=== PATIENT | male | born 1970 | race Caucasian/White ===

== ENCOUNTER 2016-07-05 09:10 | Emergency (ER) | payer MEDICAID ==
--- NOTE | 2016-07-05 09:18 | ED Physician Chart ---
Chief Complaint/HPI - Patient Information Date Seen:: 07/05/16 Time Seen:: 09:15 Chief Complaint:: L ankle pain History of Present Illness:: Brought in by ambulance because of L ankle pain for 2 days. Pt states that he twisted his L ankle about 2 days ago. Pt otherwise feels well. Pt has h/o mental illness and is homeless. He has not been taking his medications for his psychiatric conditions. Pt has flights of ideas. He becomes agitated and is uncooperative. Thus, H & P are limited. Vitals:: see Nurse Note. Historian:: Patient Family MD/PCP:: unknown. LMP:: N/A Review:: Nurse's Note Reviewed Review of Systems - Review of Systems General/Constitutional: Other (Pt does not cooperate for ROS.) Past Medical History - Past Medical History Past Medical History: HTN, Seizures, Other (Pt does not cooperate to provide info.) Family History: Other (Pt does not cooperate to provide info on FHx.) Social History: Homeless, Other (Pt does not cooperate to provide info on SHx.) Surgical History: other (Pt does not cooperate to provide info on Surgical Hx.) Psychiatricy History: Bipolar Medication: Reviewed Family Medical History - Family Member Mother History Unknown: Yes Physical Exam - Physical Examination General/Constitutional: Awake, Well-developed, well-nourished, Alert, No distress, Ambulatory Other Gen/Cons comments:: Breathes comfortably, speaks clearly with flight of ideas. Pt at times becomes very agitated and is uncooperative. Pt is verbally abusive and bellingerent. Head: Atraumatic Eyes: Lids, conjuctiva normal, PERRL, EOMI Skin: No ecchymosis, Well hydrated, No lymphadenopathy ENMT: External ears, nose nl, Nasal exam nl, Oropharynx nl Neck: Nontender, Full ROM w/o pain, No JVD, No nuchal rigidity, No mass, No stridor Respiratory: Nl effort/Exclusion, Clear to Auscultation, No Wheeze/Rhonchi/Rales Cardio Vascular: RRR, No murmur, gallop, rubs GI: No tenderness/rebounding/guarding, No organomegaly, No hernia, Normal BS's, Nondistended, No mass/bruits, No McBurney tenderness Other GI comments:: Abdomen is soft. Other Extremities comments:: L ankle: Tenderness to palpation at medial aspect with mild edema. ROM is decreased due to pain. No gross deformity, erythema, crepitus, or open wound. No detectable motor/sensory/vascular deficit. Good distal pulse and capillary refill. Neuro/Psych: Alert/oriented (oriented x 3.), No focal deficits Other Neuro/Psych comments:: Spontaneous movements noticed in all 4 extremities. Pt does not cooperate for full neurological exam. Labs/Radiology/EKG Results - Lab Results Results: Laboratory Tests 07/05/16 07/05/16 07/05/16 09:41 09:41 09:41 WBC 8.1 RBC 3.68 L Hgb 12.7 L Hct 34.9 L MCV 94.8 MCH 34.6 H MCHC Differential 36.5 H RDW 12.7 Plt Count 232 MPV 6.6 Neutrophils % 76.6 Lymphocytes % 13.8 L Monocytes % 6.4 Eosinophils % 0.6 Basophils % 2.6 H Sodium 130 L Potassium 4.0 Chloride 104 Carbon Dioxide 24.2 Anion Gap 5.8 L BUN 12 Creatinine 0.8 Est GFR ( Amer) > 60.0 Est GFR (Non-Af Amer) > 60.0 BUN/Creatinine Ratio 15.0 Glucose 126 H Calcium 8.6 Total Bilirubin 0.3 AST 22 ALT 11 Alkaline Phosphatase 64 Total Protein 6.0 Albumin 3.3 L Globulin 2.7 Albumin/Globulin Ratio 1.2 TSH 0.78 Urine Source Urine Color Urine Clarity Urine pH Ur Specific [place] Urine Protein Urine Glucose (UA) Urine Ketones Urine Blood Urine Nitrate Urine Bilirubin Urine Urobilinogen Ur Leukocyte Esterase Urine Opiates Screen Ur Barbiturates Screen Ur Phencyclidine Scrn Amphetamines Screen U Methamphetamines Scrn U Benzodiazepines Scrn U Cocaine Metab Screen U Cannabinoids Screen Ethyl Alcohol < 10 07/05/16 07/05/16 09:55 09:55 WBC RBC Hgb Hct MCV MCH MCHC Differential RDW Plt Count MPV Neutrophils % Lymphocytes % Monocytes % Eosinophils % Basophils % Sodium Potassium Chloride Carbon Dioxide Anion Gap BUN Creatinine Est GFR ( Amer) Est GFR (Non-Af Amer) BUN/Creatinine Ratio Glucose Calcium Total Bilirubin AST ALT Alkaline Phosphatase Total Protein Albumin Globulin Albumin/Globulin Ratio TSH Urine Source CLEAN C Urine Color YELLOW Urine Clarity CLEAR Urine pH 6.0 Ur Specific [place] 1.020 Urine Protein NEGATIVE Urine Glucose (UA) NEGATIVE Urine Ketones NEGATIVE Urine Blood NEGATIVE Urine Nitrate NEGATIVE Urine Bilirubin NEGATIVE Urine Urobilinogen 0.2 Ur Leukocyte Esterase NEGATIVE Urine Opiates Screen NEGATIVE Ur Barbiturates Screen NEGATIVE Ur Phencyclidine Scrn NEGATIVE Amphetamines Screen POSITIVE H U Methamphetamines Scrn POSITIVE H U Benzodiazepines Scrn POSITIVE H U Cocaine Metab Screen NEGATIVE U Cannabinoids Screen NEGATIVE Ethyl Alcohol RPR is pending. - Radiology Results Results: L ankle X-ray (3v.): Based on my interpretation, mild soft tissue swelling. No acute fx or subluxation. Official report is pending. ED Septic Shock - . Is Septic Shock (SBP<90, OR Lactate>4 mmol\L) present?: No Reassessment (Disposition) - Reassessment Reassessment:: 1135 Just informed by nursing staff that pt left the ER department and now he just returned, claiming that he is suicidal. Pt is ambulatory without distress. He is verbally abusive and bellingerent. 1144 Dr. Langston, psychiatrist is at bedside evaluating pt. 1600 Pt has been repeatedly evaluated. Pt has been put on [address] Juliane Berry. Pt remains stable and comfortable. No new findings. LLE was reexamined earlier after splint had been placed. It was placed properly without neurovascular deficit. 0625 Pt slept throug the night comfortably. Case was signed off to Dr. Kline at about 0625 for continued care. Reassessment Condition:: Improved - Diagnosis Diagnosis:: h/o bipolar disorder with polysubstance abuse. L ankle sprain, stable and improved.
[2016-07-05 09:47] LABS: % BASOPHILS 2.6 % (0.0-2.0); % EOSINOPHILS 0.6 % (0.0-5.0); % LYMPHOCYTES 13.8 % (20.0-50.0); % MONOCYTES 6.4 % (2.0-10.0); % NEUTROPHILS 76.6 % (40.0-80.0); HEMATOCRIT 34.9 % (39.0-49.0); HEMOGLOBIN 12.7 gm/dL (13.2-17.3); MEAN CELL VOLUME 94.8 fl (80-99); MEAN CORPUSCULAR HEMOGLOBIN 34.6 pg (26.0-30.0); MEAN CORPUSCULAR HGB CONC 36.5 pg (28.0-36.0); MEAN PLATELET VOLUME 6.6 fl; NEUTROPHILE ABSOLUTE 6.3 Th/cmm (1.8-8.0); PLATELET COUNT 232 Th/cmm (150-400); RED BLOOD COUNT 3.68 Mil/cmm (4.30-5.70); RED CELL DISTRIBUTION WIDTH 12.7 % (11.5-20.0); WHITE BLOOD COUNT 8.1 Th/cmm (4.8-10.8)
[2016-07-05 10:05] LABS: CARBON DIOXIDE 24.2 mEq/L (21.0-31.0); CHLORIDE 104 mEq/L (98-107); SODIUM SERUM 130 mEq/L (136-145)
[2016-07-05 10:06] LABS: ALB/GLOB RATIO 1.2 (1.0-1.8); ALKALINE PHOSPHATASE 64 U/L (34-104); ANION GAP 5.8 (7.0-16.0); BILIRUBIN,TOTAL 0.3 mg/dL (0.3-1.0); BUN - UREA NITROGEN 12 mg/dL (7-25); CALCIUM SERUM 8.6 mg/dL (8.6-10.3); CREATININE - SERUM 0.8 mg/dL (0.7-1.3); GLUCOSE 126 mg/dL (70-105); SGOT 22 U/L (13-39); SGPT/ALT 11 U/L (7-52)
[2016-07-05 10:08] LABS: URINE BILIRUBIN NEGATIVE (NEGATIVE); URINE BLOOD NEGATIVE (NEGATIVE); URINE COLOR YELLOW; URINE GLUCOSE (UA) NEGATIVE (NEGATIVE); URINE KETONE NEGATIVE (NEGATIVE); URINE PROTEIN NEGATIVE (NEGATIVE); URINE UROBILINOGEN 0.2 E.U./dL (0.2 - 1.0)
[2016-07-05 10:40] LABS: AMPHETAMINE URINE POSITIVE (NEGATIVE); BARBITURATES URINE NEGATIVE (NEGATIVE)
--- NOTE | 2016-07-06 03:49 | Consultation ---
CHIEF COMPLAINT: The patient was admitted, was seen in the Emergency Room on the 07/05/2016. IDENTIFYING INFORMATION: The patient is a 46-year-old male. REASON FOR CONSULTATION: ____, who came here. Apparently, he was seeking addictive medications, for pain and Driver, Ativan. He got agitated. He tried to elope. The police brought him back, became suicidal. When I talked to the patient who is very much hyperverbal, unable to follow direction, unable to give me information; however, he did tell me that he has long history of pain, substance abuse that he tried to harm himself before, but he was very hard to follow ____, so he was consider poor historian. JOB# [id number]
--- NOTE | 2016-07-06 04:04 | Consultation ---
The patient was seen in the Emergency Room on 07/05/2016. IDENTIFYING INFORMATION: The patient is a 46-year-old male. REASON FOR CONSULTATION: I was asked to see this patient who was suicidal. Apparently, the patient came and asking for pain medications when he did not get it, he eloped. The police brought him back. He started becoming suicidal. When I talked to him, he was all over the place, very hyperverbal, very restless, unable to follow direction or give information, but he did admit that he has a history of prior suicide attempt, has long history of psychiatric problems, has been hospitalized, he said that he has been here many times. He was not answering me regarding hallucinations, was not very easy to follow. PAST PSYCHIATRIC HISTORY: Depression, suicide attempt. He was manic. MEDICAL HISTORY: Deferred to the medical doctor. FAMILY AND SOCIAL HISTORY: I was unable to obtain. I tried to get his age and it took me for ____ to have him say it and then he went to ____. MENTAL STATUS EXAMINATION: The patient is appropriately dressed, however, kept taking off his clothes to show me his wounds. He was unable to tell me the date, where he is. He was complaining that he is in pain and then he starts becoming suicidal. He was unable to explain a plan, unable to follow direction, hyperverbal and manic, very tangential in his speech, unable to follow direction, unable to assess memory and intelligence. His insight and judgment is impaired. IMPRESSION: AXIS I: Bipolar disorder manic, mixed, polysubstance dependence. PLAN: I will put the patient on the hold, needs to be transferred to a Psych Unit for further treatment and evaluation. Thank you very much for allowing me to participate in the care of this most interesting gentleman. JOB# [id number]
[2016-07-06] MEDS ORDERED: buPROPion XL 150 mg T 24 H PO ONE (13:00)
--- NOTE | 2016-07-06 14:48 | Diagnostic Imaging Report ---
Left ankle (3 views) HISTORY: Pain There is generalized soft tissue swelling. No acute bony abnormalities are seen. No fractures. Joint spaces appear normal. IMPRESSION: 1. Soft tissue swelling 2. No definite acute bony abnormalities. In the presence of recent trauma and persistent symptoms, a repeat radiograph in 5-7 days may be helpful for detection of a subtle or occult fracture.
--- NOTE | 2016-07-06 23:53 | Admit Criteria Form ---
Admit Criteria Forms - Admit Criteria Diagnosis: PSYCHIATRIC DISORDERS Clinical Indications for Inpatient Care (Place 'X' for any and all applicable criteria): Ongoing inpatient care may be needed for ANY ONE of the following(1)(2)(3)(4)(6) (7)(8): [ ]I. Danger to self or others not manageable at lower level of care. [ ]II. Grave disability (eg, inability to perform self care necessary at lower level of care) [X]III. Agitation or inappropriate behavior interfering with care for primary condition (eg, attempting to discontinue lines or drains prematurely, unable to cooperate with respiratory care) [ ]IV. Severe disability or disorder indicated by ALL of the following: [ ]a) Severe behavioral health disorder-related symptoms or condition indicated by ANY ONE of the following: [ ]i) Severe problem with cognition, memory, judgment, or impulse control [ ]ii) Severe clinical manifestations (eg, hallucinations, delusions, other acute psychotic symptoms, marycarmen, extreme agitation or anxiety) [ ]b) Patient management at lower level of care is not feasible until acute intervention or modification is initiated. Extended stay beyond goal length of stay for the primary condition may be indicated when ANY ONE of the following is present: (1)(2)(3)(4): [ ]a) Patient is a danger to self or others and not manageable at lower level of care. [ ]b) Behavior crisis management, including physical or chemical restraints, is required and is not available at a lower level of care. [ ]c) Behavioral symptoms (e.g., agitation, somnolence, inappropriate behavior) are present, and are not manageable at a lower level of care. [ ]d) Patient cannot understand follow-up treatment and crisis plan. [ ]e) Provider and supports are not sufficiently available at lower level of care. [ ]f) Patient cannot participate (e.g., verify absence of plan for harm) and is in needed of monitoring. The original [facility] [employer] content created by [facility] [employer] has been revised. The portions of the content which have been revised are identified through the use of italic text or in bold, and [facility] [employer] has neither reviewed nor approved the modified material. All other unmodified content is copyright [facility] [employer]. Please see references footnoted in the original [facility] edition 2016 Admit Criteria Met?: Yes
--- NOTE | 2016-07-07 03:57 | Progress Notes ---
The patient was seen in the Emergency Room on 07/06/2016. Case was discussed with staff of the patient. The patient continues to be agitated, continues to need redirection, denying his medication, asking for [place] and other medications. He also reports he is on Seroquel. He is being combative with the staff, easily agitated, irritable. They tried to send him to [place]; they would not take him for insurance reasons. So far, he is on the Prolixin 2 mg twice a day; however, he reports he is on Seroquel and Wellbutrin and no side effects with the medication. We will be adding his medications with Seroquel and Wellbutrin. Also, we will transfer to [facility] facility when it becomes available. Thank you very much for allowing me to participate in the care of this most interesting gentleman. JOB# [id number]
[2016-07-07] MEDS ORDERED: Ketamine 50 mg/mL 10mL Vial ONE (08:57)
[2016-07-07] MEDS ORDERED: Ketamine 50 mg/mL 10mL Vial IM STA (08:59)
[2016-07-07] MEDS ORDERED: buPROPion XL 150 mg T 24 H PO SCH (09:00)
--- NOTE | 2016-07-08 05:53 | Progress Notes ---
Case discussed with staff of the patient, reviewed records. The patient continues to do the same. He is telling the staff if he does not get the medication he wants, he will kill himself. He was sedated when I tried to talk to him, would not answer any of my questions. He is unpredictable, impulsive. He is in the process of being transferred to [place] and so the patient will follow up, he will be seen there for inpatient psychiatric treatment and I think that will be the best plan of action at this point. Thank you very much for allowing me to participate in the care of this most interesting gentleman. JOB# [id number]
== END 2016-07-07 12:10 ==
LOC: ER 09:10
DX: S93.492A Sprain of other ligament of left ankle, initial encounter (principal); F31.9 Bipolar disorder, unspecified; F19.10 Other psychoactive substance abuse, uncomplicated; I10 Essential (primary) hypertension; Z88.8 Allergy status to other drugs, medicaments and biological substances; X58.XXXA Exposure to other specified factors, initial encounter; Y93.89 Activity, other specified; Y92.89 Other specified places as the place of occurrence of the external cause; Y99.8 Other external cause status
CPT/HCPCS: 99285; 96372; 29515; 73610; 36415; 80299; 80300; 84443; 86592; 85025; 81003; 80320; 80053; J2060 ×2; X6436; Z7610